=== PATIENT | female | born 1985 | race Caucasian/White ===

== ENCOUNTER 2023-05-12 09:50 | Emergency (ER) | payer OTHER, SELFPAY ==
[2023-05-12 09:56] VITALS: BP 122/74; PULSE 97; RESP 18; TEMP 37.1; O2SAT 94; BMI 22.5
--- NOTE | 2023-05-12 10:21 | ED.ABDPAIN1 ---
HPI - Abdominal Pain General Chief Complaint: Abdominal Pain Stated Complaint: LEFT ABDOMINAL PAIN Time Seen by Provider: 05/12/23 10:21 Source: patient Mode of arrival: walk-in History of Present Illness HPI narrative: patient here was right lower abdominal pain. She's previously had a cholecystectomy and appendectomy. She has a contraceptive insert in her arms so she does not believe she is . She does not have any burning frequency urgency or dysuria. She has not had previous STDs or bacterial STDs or any type of pelvic inflammatory disease to her knowledge. She says that she has had ovarian cystic problems in the past. Related Data Allergies Allergy/AdvReac Type Severity Reaction Status Date / Time haloperidol [From Haldol] Allergy Severe Anaphylaxis Verified 05/12/23 09:56 prochlorperazine Allergy Severe Anaphylaxis Verified 05/12/23 09:56 [From Compazine] cephalexin [From Keflex] AdvReac Mild Hives Verified 05/12/23 09:56 ibuprofen AdvReac Mild Verified 05/12/23 09:56 PFSH PFSH Social History Smoking status: Current every day smoker Exam Constitutional Vital Signs - 24 hr 05/12/23 09:56 Temperature 98.7 F Pulse Rate [Monitor] 97 H Respiratory Rate 18 Blood Pressure [Left Arm] 122/74 H Pulse Oximetry 94 L Oxygen Delivery Method Room Air Course Vital Signs Vital signs: Vital Signs Temperature 98.7 F 05/12/23 09:56 Pulse Rate 97 H 05/12/23 09:56 Respiratory Rate 18 05/12/23 09:56 Blood Pressure 122/74 H 05/12/23 09:56 Pulse Oximetry 94 L 05/12/23 09:56 Oxygen Delivery Method Room Air 05/12/23 09:56 Temperature 98.7 F 05/12/23 09:56 Pulse Rate 97 H 05/12/23 09:56 Respiratory Rate 18 05/12/23 09:56 Blood Pressure 122/74 H 05/12/23 09:56 Pulse Oximetry 94 L 05/12/23 09:56 Oxygen Delivery Method Room Air 05/12/23 09:56 MDM - Abdominal Pain Lab Data Labs: Lab Results 05/12/23 Range/Units 10:28 WBC 5.2 (4.0-11.0) 10^3/uL RBC 3.90 L (4.20-5.40) 10^6/uL Hgb 12.5 (12.0-16.0) g/dL Hct 36.4 (36.0-48.0) % MCV 93.3 (81.0-99.0) fL MCH 32.1 (26.7-34.0) pg MCHC 34.3 (29.9-35.2) g/dL RDW 13.1 (11.0-15.0) % Plt Count 199 (150-450) 10^3/uL MPV 11.8 (9.5-13.5) fL Neut % (Auto) 60.0 (43.0-75.0) % Lymph % (Auto) 29.1 (20.5-60.0) % [place] % (Auto) 9.0 (1.7-12.0) % Eos % (Auto) 1.1 (0.9-7.0) % Baso % (Auto) 0.4 (0.2-2.0) % Neut # (Auto) 3.1 (1.4-6.5) 10^3/uL Lymph # (Auto) 1.5 (1.2-3.8) 10^3/uL [place] # (Auto) 0.5 (0.3-0.8) 10^3/uL Eos # (Auto) 0.1 (0.0-0.7) 10^3/uL Baso # (Auto) 0.0 (0.0-0.1) 10^3/uL Abs Immat Gran (auto) 0.02 (0.00-0.03) 10^3/uL Imm/Tot Granulo (auto) 0.4 (0.0-0.5) % Urine HCG, Qual Negative (NEGATIVE) Discharge Plan Discharge Chief Complaint: Abdominal Pain Clinical Impression: Abdominal pain Patient Disposition: Left Against Medical Advice Mode of Transportation: Private Vehicle Stand Alone Forms: Portal Instructions Referrals: Physician,Non-Staff, MD [Primary Care Provider] - 1 week Discharge Date/Time: 05/12/23 11:58
--- NOTE | 2023-05-12 10:26 | US_ITS ---
[address] [address] Patient Name: RADHA BEEBE MRN: [id number] date: 1985 Sex: F Assigned Patient Location: ER Current Patient Location: ER Accession/Order Number: [id number] Exam Date: 05/12/2023 11:00 Report Date: 05/12/2023 11:41 At the request of: KATHARINA ALEJANDRE Procedure: US pelvis transvaginal PELVIC ULTRASOUND: 05/12/2023 8:35 AM PDT HISTORY: pain. TECHNIQUE: Real-time transabdominal and endovaginal sonography of the pelvis was performed. Endovaginal ultrasound was performed for better evaluation of the endometrial stripe and adnexa. Doppler ultrasound and spectral waveforms of both ovaries were obtained. COMPARISON: CT abdomen/pelvis 04/13/2023. FINDINGS: UTERUS: Normal size. Position: Anteverted. Anteflexed. Size: 7.3 x 3.4 x 4.6 cm. Volume: 58 cc. Myometrium is homogeneous. Fibroids: None. ENDOMETRIUM: There are 2 small subendometrial cysts which could be from prior ablation. No IUD present. Thickness: 3 mm. RIGHT OVARY: Not visualized. LEFT OVARY: Normal appearance of the parenchyma and follicles. There is a dominant follicle which measures up to 2.5 cm. Size: 3.4 x 2.6 x 3.5 cm. Volume: 15.8 cc. No adnexal masses. Doppler signal and arterial waveform are within normal limits. PELVIC FLUID: No significant free fluid. IMPRESSION: 1. The right ovary is not visualized. 2. The left ovary is within normal limits. 3. No IUD present (confirmed on the noncontrast CT from 04/13/2023). 4. There are 2 small subendometrial cysts which could be from prior oblation. Recommend beta-hCG evaluation to confirm status if not already obtained. Electronically authenticated by: FARZANA CARRERO Date: 05/12/2023 11:41
[2023-05-12 10:47] LABS: Basophils Percent Auto 0.4 % (0.2-2.0); Eosinophils Absolute Auto 0.1 10^3/uL (0.0-0.7); Eosinophils Percent Auto 1.1 % (0.9-7.0); Hematocrit 36.4 % (36.0-48.0); Hemoglobin 12.5 g/dL (12.0-16.0); Immature Granulocytes Abs Auto 0.02 10^3/uL (0.00-0.03); Immature Granulocytes Pct Auto 0.4 % (0.0-0.5); Lymphocytes Absolute Auto 1.5 10^3/uL (1.2-3.8); Lymphocytes Percent Auto 29.1 % (20.5-60.0); Mean Corpuscular HGB Conc 34.3 g/dL (29.9-35.2); Mean Corpuscular Hemoglobin 32.1 pg (26.7-34.0); Mean Corpuscular Volume 93.3 fL (81.0-99.0); Mean Platelet Volume 11.8 fL (9.5-13.5); Monocytes Absolute Auto 0.5 10^3/uL (0.3-0.8); Neutrophils Absolute Auto 3.1 10^3/uL (1.4-6.5); Platelet Count 199 10^3/uL (150-450); Red Cell Distribution Width 13.1 % (11.0-15.0); White Blood Count 5.2 10^3/uL (4.0-11.0)
[2023-05-12 10:49] LABS: HCG Qualitative Urine* NEGATIVE (NEGATIVE)
[2023-05-12] MEDS: HYDROMORPHONE HCL 1 MG/ML CARTRIDGE IM (11:05)
== END 2023-05-12 11:58 | disposition left against medical advice (07) ==
PROVIDERS: Emergency Provider Emergency Medicine Emergency Medical Services
DX: R10.9 Unspecified abdominal pain (principal); Z53.29 Procedure and treatment not carried out because of patient's decision for other reasons; Z90.49 Acquired absence of other specified parts of digestive tract; F17.210 Nicotine dependence, cigarettes, uncomplicated
CPT/HCPCS: 36415; 76830; 84703; 85025; 96372; 99285; J1170